=== PATIENT | female | born 1960 | race African-American/Black ===

== ENCOUNTER → 2016-07-18 | Outpatient (CLI) | payer OTHER ==
[~2016-07-18] MED LIST: ALAVERT10 MG; ALLEGRA; ASPIRIN EC81 M1 PO; ASPIRIN PO; AUGMENTIN PO; AZELASTINE137 MCG/0.; BENICAR; BENTYL10 M1 PO; BETAMETHASONE D15 G1 TP; CARVEDILOL25 MG PO; CENTRUM SILVER1 EAC2 PO; CERTAGEN PO; CHLORTHALIDONE25 M1 PO; CLARITIN10 M2 PO; CLOBETASOL 0.0560 GM TOP; CLOBETASOL EMU100 GM TOP; CLOBETASOL PROP50 ML; CLOBEX59 ML TOP; DEXILANT60 MG PO; FLONASE 0.05% N16 G1; FLOVENT7.9 GM; FLUTICASONE PRO15 G1 TOP; FLUTICASONE PRO15 G1 TP; FOLIC ACID1 MG PO; GABAPENTIN300 MG PO; GLUMETZA1000 MG/BO; HUMULIN 70100 UNIT/1; HYDROCHLOROTH12.5 MG PO; IMODIUM MS REL1 EAC1 PO; IMODIUM2 MG PO; IPRATROPIUM; IRON45 MG PO; LACTAID PO; LASIX PO; LEVOXYL88 MC1 PO; LIPITOR PO; LIPITOR40 MG PO; LOMOTIL TABLET1 TAB PO; LOPERAMIDE; LOSARTAN POTASS50 MG PO; MECLIZINE HCL12.5 M2 PO; METFORMIN; METHOTREXATE2.5 MG PO; MEVACOR; MONTELUKAST SOD10 MG PO; MULTI-VITAMIN1 EAC1 PO; NOVOLIN 70/30 V10 ML INJ; NOVOLIN N SUBQ; NOVOLIN N100 U/ML INJ; NOVOLIN N100 UNIT/1 SQ; NOVOLIN R100 UNITS/ IM; NOVOLOG MIX 70/10 ML INJ; NOVOLOG MIX 70/33 M1; NOVOLOG MIX 70/33 ML; ONGLYZA5 MG PO; OTEZLA30 MG PO; PANTOPRAZOLE SO40 MG PO; PHENTERMINE H37.5 M1 PO; PRAVASTATIN SOD80 MG PO; PRILOSEC; PROBIOTIC1 EAC1 PO; PROVASTATIN PO; SYNTHROID PO; TEMOVATE 0.05%15 G1 TOP; VITAMIN D-32000 UNI1 PO; ZYRTEC PO; ZYRTEC10 M1 PO; ZYRTEC10 M2 PO; ZYRTEC10 M3 PO; [UNRECOGNIZED DRUG - CODE]; [UNRECOGNIZED DRUG - OTHER]; [UNRECOGNIZED DRUG - OTHER]; [UNRECOGNIZED DRUG - OTHER] TOP; [UNRECOGNIZED DRUG - OTHER] TP
--- NOTE | ~2016-07-18 | US37 ---
[facility] A Service of [facility] & [facility] RADIOLOGY TEXT RESULTS PATIENT: MILANA MCDONALD LOCATION: [facility] : 56 UNIT #: [id number] AGE: [address]: Nicholas Palmer MD SEX: F ORDER DR: [id number] [facility] [address] [place], [place] [address] [id number] O MR#: [id number] [facility] #: [id number] NAME: MILANA MCDONALD : 1960 SEX: F STUDY DATE/TIME: 07/18/2016 15:49 UNIT: [facility] ROOM: STUDY DESCRIPTION: US Carotid W/Doppler Bilateral Attending Physician: Nicholas Palmer M.D. Referring Physician: Nicholas Palmer M.D. Ordering Physician: Nicholas Palmer M.D. Primary Care Physician: Frankie Salgado M.D. MEDICAL IMAGING REPORT This report is preliminary unless electronic signature is present EXAM Carotid duplex scan, 07/18/2016 HISTORY Previous right carotid endarterectomy. FINDINGS The right common carotid artery has no significant plaque. There is heterogeneous plaque in the right carotid bulb, which extends up into the proximal internal carotid artery. Peak systolic velocity in the proximal right internal carotid artery is 234 cm/sec with an end-diastolic velocity of 45 cm/sec. The ICA/CCA ratio on the right is 2.05. Peak systolic velocity in the right external carotid artery is 197 cm/sec. The right vertebral artery is patent with antegrade flow. The left common carotid artery has no significant plaque. The left internal and external carotid arteries are patent without plaque. Peak systolic velocity in the mid left internal carotid artery is 96 cm/sec with an end-diastolic velocity of 31 cm/sec. The ICA/CCA ratio on the left is 0.83. Peak systolic velocity in the left external carotid artery is 101 cm/sec. The left vertebral artery is patent with antegrade flow. IMPRESSION Severe stenosis (greater than or equal to 70%) of the right internal carotid artery by velocity criteria, but it does not appear to be this severe by B-mode imaging. Significant stenosis of the right external carotid artery. No significant stenosis (less than 50%) in the left internal and external carotid arteries. Patent vertebral arteries bilaterally with antegrade flow. Dictated by... [facility] A Service of [facility] RADIOLOGY TEXT RESULTS PATIENT: MILANA MCDONALD LOCATION: [facility] : 56 UNIT #: [id number] AGE: [address]: Nicholas Palmer MD SEX: F ORDER DR: Gabe Abbott M.D. THIS IS AN ELECTRONICALLY VERIFIED REPORT Gabe Abbott M.D. at 07/19/2016 7:32 AM MELISSA/abelino TD: 07/19/2016 01:32 JOB #: [id number] MEDICAL IMAGING REPORT COPY
== END | disposition home or self-care (01) ==
LOC: CNIV 15:07
DX: I65.29 Occlusion and stenosis of unspecified carotid artery (principal); I65.21 Occlusion and stenosis of right carotid artery
CPT/HCPCS: 93880

== ENCOUNTER → 2016-08-09 | Outpatient (CLI) | payer OTHER ==
--- NOTE | ~2016-08-09 | CT23 ---
[facility] A Service of [facility] & [facility] RADIOLOGY TEXT RESULTS PATIENT: MILANA MCDONALD [facility] 56 UNIT #: [id number] AGE: [address]: Moira Sanches SEX: F ORDER DR: [id number] [facility] [address] [place], [place] [address] [id number] O MR#: [id number] [facility] #: [id number] NAME: MILANA MCDONALD : 1960 SEX: F STUDY DATE/TIME: 08/09/2016 15:03 UNIT: [facility] ROOM: STUDY DESCRIPTION: CT Angio Neck Attending Physician: Moira Sanches A.P.R.N. Referring Physician: Moira Sanches A.P.R.N. Ordering Physician: Moira Sanches A.P.R.N. Primary Care Physician: Frankie Salgado M.D. MEDICAL IMAGING REPORT This report is preliminary unless electronic signature is present REVISED REPORT SEE ADDENDUM EXAM CTA head and neck CT angiogram of the head and neck was obtained with IV contrast in the axial plane followed by reformats in 3 planes. HISTORY: Stumbling 3-D MIP images, curved reformats of the major neck arteries. Neck: Three-vessel aortic arch is seen. Atherosclerotic plaques are noted in the origin of the left subclavian artery with likely mild narrowing. No distal flow limitation. Bilateral common carotid arteries demonstrate expected course, caliber and flow. There are focal metallic hyperdensities noted adjacent to the distal right common carotid artery and around the right external carotid artery which could be related to previous surgery. There is focal short segment of dissection of the right internal carotid artery bulb at its origin involving less than 1 cm long segment. No distal flow limitation is seen. The left internal and bilateral external carotid arteries demonstrate expected flow course and caliber. Left vertebral artery is dominant. Small atherosclerotic plaque is noted at the origin of the left vertebral artery. No obvious aneurysm or AVM is seen. Head: Bilateral intracranial internal carotid arteries demonstrate atherosclerotic plaques in bilateral cavernous ICA, worse on the left with likely tvoklwko-id-laaxmy short-segment of stenosis. Some plaque also seen in bilateral supraclinoid ICA. Bilateral anterior and middle cerebral arteries do not demonstrate any significant abnormality. Tiny ACOM cannot be excluded. Well defined PComs are not seen. Bilateral STS. [facility] A Service of [facility] RADIOLOGY TEXT RESULTS PATIENT: MILANA MCDONALD LOCATION: [facility] : 56 UNIT #: [id number] AGE: [address]: Moira Sanches SEX: F ORDER DR: middle cerebral arteries are within normal limits. Basilar artery, bilateral posterior cerebral artery and proximal bilateral superior cerebellar arteries are within normal limits. There is decrease in caliber of bilateral vertebral arteries as extend toward the vertebrobasilar junction. It is noted particularly after the takeoff of bilateral PICA. No discernible aneurysm, AVM is noted in the [place] of [place]. Dural venous sinuses are patent. The left transverse and sigmoid sinus appear asymmetrically smaller when compared to the right. Extravascular soft tissues: Significant streak artifact is noted related to dental filling in the oral cavity. S-shaped nasal septal deviation is seen. There is no significant lymphadenopathy. Focal calcification is seen in the anterior right thyroid lobe. IMPRESSION 1. There is a focal short less than 1 cm segment of dissection noted in the left internal carotid artery bulb extending from its origin toward the distal portion of the bulb. There is no distal flow limitation seen nor is there any obvious aneurysmal dilatation. 2. Right internal carotid artery is unremarkable without any significant stenosis per NASCET criteria. 3. Scattered atherosclerotic plaques are noted in the carotid vessels particularly in the cavernous left intracranial ICA and there is probably bndfexuz-db-xyzkvg stenosis. 4. Decreased caliber of bilateral vertebral arteries are noted after the takeoff of bilateral PICA intracranially. It is probably a congenital appearance as there is no obvious appreciable plaque noted with it. 5. Attempts are made to contact referring health provider Moira Sanches at 07:45 a.m. on 08/14/16. Dictated by... Alejandro Wilson M.D. THIS IS AN ELECTRONICALLY VERIFIED REPORT Alejandro Wilson M.D. at 08/15/2016 8:43 AM CPR/cmm TD: 08/14/2016 07:58 JOB #: [id number] ADDENDUM CTA head and neck dated 08/09/2016. [facility] A Service of [facility] RADIOLOGY TEXT RESULTS PATIENT: MILANA MCDONALD LOCATION: [facility] : 56 UNIT #: [id number] AGE: [address]: Moira Sanches SEX: F ORDER DR: ADDENDUM Findings were discussed with the vascular surgeon, Dr. Jiménez at 8:00 a.m. 08/14/2016. Thank you. Dictated by... Alejandro Wilson M.D. THIS IS AN ELECTRONICALLY VERIFIED REPORT Alejandro Wilson M.D. at 08/17/2016 4:56 PM CPR/dj TD: 08/14/2016 08:19 JOB #: [id number] CC: Amari/nicole Please Delete MEDICAL IMAGING REPORT Page 1 of 1 COPY
--- NOTE | ~2016-08-09 | CT17 ---
[facility] A Service of [facility] RADIOLOGY TEXT RESULTS PATIENT: MILANA MCDONALD [facility] 56 UNIT #: [id number] AGE: [address]: Moira Sanches SEX: F ORDER DR: [id number] [facility] [address] [place], [place] [address] [id number] O MR#: [id number] Acc #: [id number] NAME: MILANA MCDONALD : 1960 SEX: F STUDY DATE/TIME: 08/09/2016 15:03 UNIT: [facility] ROOM: STUDY DESCRIPTION: CT Angio Head Attending Physician: Elly MayersPJoseRMiko Referring Physician: Moira Sanches A.P.R.N. Ordering Physician: Elly MayersPJoseRMiko Primary Care Physician: Frankie Salgado M.D. MEDICAL IMAGING REPORT This report is preliminary unless electronic signature is present EXAM CTA OF THE HEAD Please see CTA of the neck (7684) for combined report Dictated by... Alejandro Wilson M.D. THIS IS AN ELECTRONICALLY VERIFIED REPORT Alejandro Wilson M.D. at 08/15/2016 8:43 AM CPR/cmm TD: 08/14/2016 08:13 JOB #: [id number] MEDICAL IMAGING REPORT Page 1 of 1 COPY
[2016-08-09 14:40] LABS: POC - CREATININE 0.71 mg/dL (0.44-1.03); POC - GFR >60.0 mL/min (>60)
== END | disposition home or self-care (01) ==
LOC: CCAT 13:46
PROVIDERS: Registered Nurse
DX: I65.29 Occlusion and stenosis of unspecified carotid artery (principal)
CPT/HCPCS: 70496; 70498; 82565; Q9967

== ENCOUNTER → 2016-09-10 | Outpatient (CLI) | payer OTHER ==
--- NOTE | ~2016-09-10 | CT2 ---
[facility] A Service of [facility] RADIOLOGY TEXT RESULTS PATIENT: MILANA MCDONALD LOCATION: [facility] : 56 UNIT #: [id number] AGE: [address]: ALFRED ALANIS APRN SEX: F ORDER DR: [id number] [place] [id number] [facility] [place], [place] [address] [id number] O MR#: [id number] Acc #: [id number] NAME: MILANA MCDONALD : 1960 SEX: F STUDY DATE/TIME: 09/10/2016 16:35 UNIT: [facility] ROOM: STUDY DESCRIPTION: CT Abd and Pelv W Cont Attending Physician: Alfred Alnais Aprn Referring Physician: Alfred Alanis Aprn Ordering Physician: Alfred Alanis Aprn Primary Care Physician: Frankie Salgado M.D. MEDICAL IMAGING REPORT This report is preliminary unless electronic signature is present EXAM CT abdomen and pelvis with contrast INDICATIONS Low abdominal pain for the past 2 months. PROCEDURE Contrast-enhanced CT abdomen and pelvis, 100 mL Isovue-370. This CT exam was performed with one or more of the following radiation dose reduction techniques: Automatic exposure control, adjustment of mA and/or kV according to patient size, and iterative reconstruction. COMPARISON 01/09/2013 FINDINGS ABDOMEN WITH CONTRAST: Liver, spleen kidneys, adrenal glands, gallbladder unremarkable. Atrophy of the tail of the pancreas is similar to the previous study. No appreciable pancreatic mass on this single-phase study. Bowel loops are nondilated. Moderate colonic stool burden. PELVIS WITH CONTRAST: No pelvic mass or fluid. No aggressive appearing bone lesion. IMPRESSION 1. No acute findings in the abdomen or pelvis. 2. Moderate colonic stool burden. Dictated by... Saji Macias M.D. THIS IS AN ELECTRONICALLY VERIFIED REPORT [facility] A Service of [facility] RADIOLOGY TEXT RESULTS PATIENT: MILANA MCDONALD LOCATION: [facility] : 56 UNIT #: [id number] AGE: [address]: ALFRED ALANIS APRN SEX: F ORDER DR: Saji Macias M.D. at 09/11/2016 3:56 PM EED/psc TD: 09/10/2016 21:37 JOB #: [id number] MEDICAL IMAGING REPORT Page 1 of 1 COPY
[2016-09-10 16:16] LABS: POC - CREATININE 0.58 mg/dL (0.44-1.03); POC - GFR >60.0 mL/min (>60)
== END | disposition home or self-care (01) ==
LOC: CCAT 14:11
PROVIDERS: Nurse Practitioner
DX: R10.31 Right lower quadrant pain (principal); R10.32 Left lower quadrant pain
CPT/HCPCS: 74177; 82565; Q9967